=== PATIENT | female | born 1975 | race African-American/Black ===

== ENCOUNTER 2025-03-20 00:35 | Emergency (ER) | payer SELFPAY ==
[~2025-03-20] VITALS: Ht 160 cm; Wt 121.0 kg
[2025-03-20 00:42] VITALS: O2SAT 100
[2025-03-20 00:56] VITALS: BP 154/99; PULSE 105; RESP 18; TEMP 36.9; O2SAT 100
[2025-03-20 02:00] VITALS: TEMP 98.5
[2025-03-20] MEDS: ACETAMINOPHEN 500MG TABLET PO ONE (02:00)
== END 2025-03-20 04:00 | disposition home or self-care (01) ==
LOC: EDBD → ER 00:55
DX: F20.9 Schizophrenia, unspecified (principal); I10 Essential (primary) hypertension; E11.9 Type 2 diabetes mellitus without complications
CPT/HCPCS: 99282

== ENCOUNTER 2025-04-04 14:00 | Emergency (ER) | payer MEDICAID ==
[~2025-04-04] VITALS: Ht 157.5 cm; Wt 109.0 kg
[2025-04-04 15:08] LABS: BASOPHILS % 0.8 % (0.0-2.0); EOSINOPHILS % 2.4 % (0.0-5.0); HEMATOCRIT. 32.6 % (36.0-48.0); HEMOGLOBIN. 11.1 g/dL (12.0-16.0); LYMPHOCYTES % 32.7 % (20.0-50.0); MEAN PLATELET VOLUME 10.9 fl (7.4-10.4); MONOCYTES % 6.5 % (2.0-8.0); NEUTROPHILS % 57.6 % (40.0-76.0); PLATELET 257 x1000/uL (130-400); RED BLOOD CELL COUNT 3.97 mill/uL (4.2-5.4); RED CELL DISTRIBUTION WIDTH 14.9 % (11.6-14.6)
[2025-04-04 15:24] LABS: B-HCG QUANTITATIVE 4 mIU/mL (<6); CREATININE 0.9 mg/dL (0.6-1.0); TROPONIN I HIGH SENSITIVITY 8 ng/L (3.0-34); UREA NITROGEN BLOOD 13 mg/dL (9-23)
[2025-04-04 15:26] LABS: ASPARTATE AMINOTRANSFERASE 26 IU/L (<34); BILIRUBIN DIRECT 0.1 mg/dL (<=3.0); BILIRUBIN TOTAL 0.3 mg/dL (0.1-1.0)
[2025-04-04 15:27] LABS: PROTEIN TOTAL 8.1 g/dL (6.0-8.3)
[2025-04-04 17:18] VITALS: O2SAT 99
[2025-04-04 18:15] LABS: ETHANOL BLOOD < 10 mg/dL (<10)
[2025-04-04 20:21] LABS: *AMPHETAMINES SCREEN URINE NEGATIVE (NEGATIVE); *BARBITURATES SCREEN URINE NEGATIVE (NEGATIVE); *BENZODIAZEPINES SCREEN URINE NEGATIVE (NEGATIVE); *COCAINE SCREEN URINE NEGATIVE (NEGATIVE); CANNABINOID URINE SCREEN NEGATIVE (NEGATIVE); ECSTASY MDMA SCREEN URINE NEGATIVE (NEGATIVE); METHADONE URINE SCREEN NEGATIVE (NEGATIVE); OPIATES URINE SCREEN NEGATIVE (NEGATIVE); PHENCYCLIDINE URINE SCREEN NEGATIVE (NEGATIVE)
[2025-04-04 21:31] LABS: CLARITY URINE CLOUDY (CLEAR); COLOR URINE YELLOW (YELLOW); GLUCOSE URINE NEGATIVE (NEGATIVE); KETONES URINE TRACE (NEGATIVE); LEUKOCYTE ESTERASE URINE 1+ (NEGATIVE); NITRITE URINE NEGATIVE (NEGATIVE); OCCULT BLOOD URINE NEGATIVE (NEGATIVE); PH URINE 6.0 (4.5-8.0); PROTEIN URINE NEGATIVE (NEGATIVE); SPECIFIC GRAVITY URINE 1.027 (1.005-1.030); UROBILINOGEN URINE 2.0 E.U./dL (0.2-1.0)
[2025-04-04 22:13] LABS: BACTERIA URINE 2+; RBC URINE 0-2 /hpf (0-2); SQUAMOUS EPITHELIAL CELL URINE 1+ /lpf (RARE/1+)
[2025-04-04] MEDS: HALOPERIDOL LACTATE 5MG/ML VIAL IM ONE (22:15)
[2025-04-04] MEDS: LORAZEPAM 2MG/ML UD SYRINGE IM SCH (22:15)
[2025-04-04] MEDS: CEPHALEXIN 250MG CAPSULE PO SCH (22:15)
[2025-04-04] MEDS: DIPHENHYDRAMINE 50MG/ML VIAL IM ONE (22:15)
[2025-04-05] MEDS: QUETIAPINE FUMARATE 25MG TABLET PO SCH (12:20)
[2025-04-07 08:40] VITALS: BP 125/80; PULSE 65; RESP 16; TEMP 36.7; O2SAT 99
== END 2025-04-07 08:41 | disposition home or self-care (01) ==
LOC: ER 14:00
DX: R45.851 Suicidal ideations (principal); I10 Essential (primary) hypertension; F41.9 Anxiety disorder, unspecified; G40.909 Epilepsy, unspecified, not intractable, without status epilepticus; R10.2 Pelvic and perineal pain; Z20.822 Contact with and (suspected) exposure to COVID-19
CPT/HCPCS: 80076; 80305; 80048; 81003; 80307; 80329; 80320; 84702; 85025; 84484; 36415; 96372; 99285; 87426; J1200; J1630; J2060; Z7610 ×2; G0480

== ENCOUNTER 2025-04-07 18:03 | Emergency (ER) | payer MEDICAID ==
[~2025-04-07] VITALS: Ht 162.6 cm; Wt 112.0 kg
[2025-04-07 18:09] VITALS: BP 144/87; TEMP 36.7; O2SAT 100
[2025-04-07 18:22] VITALS: PULSE 107; RESP 20; O2SAT 99
[2025-04-07 19:57] LABS: BASOPHILS % 0.6 % (0.0-2.0); EOSINOPHILS % 2.0 % (0.0-5.0); HEMATOCRIT. 35.3 % (36.0-48.0); HEMOGLOBIN. 11.7 g/dL (12.0-16.0); LYMPHOCYTES % 26.6 % (20.0-50.0); MEAN PLATELET VOLUME 10.3 fl (7.4-10.4); MONOCYTES % 4.9 % (2.0-8.0); NEUTROPHILS % 65.9 % (40.0-76.0); PLATELET 297 x1000/uL (130-400); RED BLOOD CELL COUNT 4.30 mill/uL (4.2-5.4); RED CELL DISTRIBUTION WIDTH 14.9 % (11.6-14.6)
[2025-04-07 20:12] LABS: CREATININE 0.8 mg/dL (0.6-1.0); TROPONIN I HIGH SENSITIVITY 7 ng/L (3.0-34); UREA NITROGEN BLOOD 15 mg/dL (9-23)
== END 2025-04-07 22:50 | disposition home or self-care (01) ==
LOC: ER 18:03
DX: R53.1 Weakness (principal); E11.9 Type 2 diabetes mellitus without complications; I10 Essential (primary) hypertension; F41.9 Anxiety disorder, unspecified
CPT/HCPCS: 36415; 71045; 80048; 84484; 85025; 99284